=== PATIENT | female | born 1995 | race Caucasian/White ===

== ENCOUNTER 2020-02-27 12:30 | Outpatient (CLI) | payer MEDICAID ==
[~2020-02-27] VITALS: Ht 165.1 cm; Wt 122.4 kg
== END 2020-02-27 14:42 | disposition home or self-care (01) ==
LOC: LDOP 12:30
PROVIDERS: ATTEND Obstetrics & Gynecology
DX: O36.8130 Decreased fetal movements, third trimester, not applicable or unspecified (principal); Z3A.37 37 weeks gestation of pregnancy; N32.89 Other specified disorders of bladder
CPT/HCPCS: 59025; 76819; 84112; 99201; G0463

== ENCOUNTER 2020-03-03 15:54 | Inpatient (IN) | payer MEDICAID ==
[~2020-03-03] VITALS: Ht 165.1 cm; Wt 125.5 kg
[2020-03-03 16:10] VITALS: BP 147/83
[2020-03-03 16:47] LABS: CREATININE,URINE RANDOM 81.8 mg/dL
[2020-03-03 16:49] LABS: BASOPHILS # (AUTO) 0.06 x10^3/uL (0-0.1); BASOPHILS % (AUTO) 1 % (0-1); EOSINOPHILS # (AUTO) 0.02 x10^3/uL (0-0.4); EOSINOPHILS % (AUTO) 0 % (1-7); LYMPHOCYTES # (AUTO) 1.71 x10^3/uL (1-3.4); LYMPHOCYTES % (AUTO) 19 % (22-44); MD NO; MEAN CORPUSCULAR HEMOGLOBIN 33.3 pg (27.0-34.8); MEAN CORPUSCULAR HGB CONC 34.6 g/dL (32.4-35.8); MEAN CORPUSCULAR VOLUME 96.2 fL (80-100); MONOCYTES # (AUTO) 0.42 x10^3/uL (0.2-0.8); MONOCYTES % (AUTO) 5 % (2-9); NEUTROPHILS # (AUTO) 6.84 x10^3/uL (1.8-6.8); NEUTROPHILS % (AUTO) 76 % (42-75); PLATELET COUNT 235 x10^3/uL (130-400); RED BLOOD COUNT 3.78 x10^6/uL (3.82-5.3); RED CELL DISTRIBUTION WIDTH 13.6 % (9.6-15.2)
[2020-03-03 16:53] LABS: ALANINE AMINOTRANSFERASE 16 U/L (12-78); ALBUMIN 2.4 g/dL (3.4-5.0); ANION GAP 9 mmol/L (5-15); CALCIUM 8.6 mg/dL (8.5-10.1); CHLORIDE 108 mmol/L (98-107)
[2020-03-03 16:58] LABS: ALKALINE PHOSPHATASE 104 U/L (45-117); BILIRUBIN,TOTAL 0.2 mg/dL (0.2-1.0); CREATININE 0.54 mg/dL (0.55-1.02); TOTAL PROTEIN 6.1 g/dL (6.4-8.2)
[2020-03-03] MEDS ORDERED: PREN1TAB60 PO (17:00)
[2020-03-03 17:01] LABS: MICROSCOPIC INDICATED
[2020-03-03 17:48] VITALS: BP 155/96
[2020-03-03] MEDS ORDERED: MAGNESIUM SULF. PMX 20GM/500ML 500 ML IV ONE (18:24)
[2020-03-03] MEDS ORDERED: LIDOCAINE 1%, 20ML ONE (18:25)
[2020-03-03] MEDS ORDERED: MISOPROSTOL 200 MCG TABLET ONE (18:25)
[2020-03-03] MEDS ORDERED: OXYTOCIN 30U/ 0.9% NaCL 500ML 500 ML ONE (18:25)
[2020-03-03] MEDS ORDERED: OXYTOCIN 30U/ 0.9% NaCL 500ML 500 ML IV ONE (18:42)
[2020-03-03] MEDS ORDERED: D5%-LACTATED RINGERS 1,000 ML IV SCH (18:42)
[2020-03-03] MEDS ORDERED: LACTATED RINGERS 1,000 ML IV SCH (18:42)
[2020-03-03] MEDS ORDERED: MISOPROSTOL 25 MCG TABLET ONE (18:47)
[2020-03-03] MEDS: LACTATED RINGERS 1,000 ML IV PRN (18:53)
[2020-03-03] MEDS ORDERED: MISOPROSTOL 25 MCG TABLET VG PRN (19:00)
[2020-03-03] MEDS ORDERED: TERBUTALINE 1 MG/ML, 1ML SQ PRN (19:00)
[2020-03-03] MEDS ORDERED: ONDANSETRON 2MG/ML, 2ML IVPush PRN (19:00)
[2020-03-03] MEDS ORDERED: MAGNESIUM SULFATE PMX 4GM/100M 100 ML IVPB ONE (19:00)
[2020-03-03] MEDS ORDERED: ALUMINUM/MAG/SIMETHICONE 30 ML UDC PO PRN (19:00)
[2020-03-03] MEDS ORDERED: TERBUTALINE 1 MG/ML, 1ML IVPush PRN (19:00)
[2020-03-03] MEDS ORDERED: CALCIUM CARBONATE 500 MG TAB.CHEW PO PRN (19:00)
[2020-03-03] MEDS ORDERED: FENTANYL PF 100 MCG/2ML IV PRN (19:00)
[2020-03-03] MEDS: MAGNESIUM SULF. PMX 20GM/500ML 500 ML IV SCH (19:17)
[2020-03-03] MEDS ORDERED: LABETALOL 5MG/ML, 20ML ONE (19:21)
[2020-03-03] MEDS ORDERED: NEWBORN KIT ONE (19:21)
[2020-03-03] MEDS ORDERED: LABETALOL 5MG/ML, 20ML IVPush PRN ×3 (19:30)
[2020-03-03] MEDS ORDERED: hydrALAzine 20 MG/ML, 1ML IVPush ONE (19:30)
[2020-03-03] MEDS ORDERED: ACETAMINOPHEN 325 MG TABLET ONE (21:03)
[2020-03-04] MEDS ORDERED: MISOPROSTOL 25 MCG TABLET ONE ×2 (02:12→08:24)
[2020-03-04] MEDS ORDERED: MAGNESIUM SULF. PMX 20GM/500ML 500 ML IV ONE ×3 (02:44→23:36)
[2020-03-04] MEDS: MAGNESIUM SULF. PMX 20GM/500ML 500 ML IV SCH ×3 (02:49→23:39)
[2020-03-04] MEDS: LACTATED RINGERS 1,000 ML IV PRN (04:00)
[2020-03-04] MEDS ORDERED: ACETAMINOPHEN 325 MG TABLET ONE (05:19)
[2020-03-04] MEDS: ACETAMINOPHEN 325 MG TABLET PO PRN (05:21)
[2020-03-04] MEDS ORDERED: OXYTOCIN 30U/ 0.9% NaCL 500ML 500 ML IV PRN (06:47)
[2020-03-04] MEDS ORDERED: FENTANYL PF 100 MCG/2ML ONE ×2 (10:54→11:39)
[2020-03-04] MEDS: FENTANYL PF 100 MCG/2ML IVPush PRN ×2 (10:58→11:50)
[2020-03-04] MEDS ORDERED: ONDANSETRON 2MG/ML, 2ML ONE (11:40)
[2020-03-04] MEDS ORDERED: FENTANYL/BUPIV./NS/PF 250 ML EPIDCONT SCH ×2 (13:32→14:15)
[2020-03-04] MEDS ORDERED: FENTANYL/BUPIV./NS/PF 250 ML EPIDCONT ONE (13:41)
[2020-03-04] MEDS ORDERED: LACTATED RINGERS 1,000 ML INTUTE SCH (14:00)
[2020-03-04] MEDS ORDERED: LACTATED RINGERS 1,000 ML INTUTE ONE (14:00)
[2020-03-04] MEDS ORDERED: FENTANYL PF 500 MCG, BUPIVACAINE/PF 0.5%, 30ML 62.5 ML in SODIUM CHLORIDE 0.9% 177.5 ML IV SCH (14:00)
[2020-03-04] MEDS ORDERED: BUPIVACAINE 0.25% ONE (14:14)
[2020-03-04] MEDS ORDERED: LACTATED RINGERS 1,000 ML IV SCH ×3 (14:15→20:40)
[2020-03-04] MEDS ORDERED: LACTATED RINGERS 1,000 ML IVBOLUS PRN (14:30)
[2020-03-04] MEDS ORDERED: EPHEDRINE 50 MG/ML, 1ML IVPush PRN ×2 (14:30→21:00)
[2020-03-04] MEDS ORDERED: NALOXONE 0.4 MG/ML, 1ML IVPush PRN (14:30)
[2020-03-04] MEDS ORDERED: DIPHENHYDRAMINE 50 MG/ML, 1ML IVPush PRN ×2 (14:30→21:00)
[2020-03-04] MEDS ORDERED: ONDANSETRON 2MG/ML, 2ML IVPush PRN (14:30)
[2020-03-04] MEDS ORDERED: LIDOCAINE/MPF 2%-EPI 1:200K, 20 ML ONE (18:08)
[2020-03-04] MEDS ORDERED: CEFAZOLIN 1,000 MG ONE ×4 (19:27→19:28)
[2020-03-04] MEDS ORDERED: OXYTOCIN 10 UNITS/ML, 1ML ONE ×4 (19:29)
[2020-03-04] MEDS ORDERED: KETOROLAC 30 MG/1 ML ONE (19:30)
[2020-03-04] MEDS ORDERED: METOCLOPRAMIDE 5 MG/ML, 2ML ONE (19:31)
[2020-03-04] MEDS ORDERED: SODIUM CITRATE/CITRIC ACID 30 ML UDC ONE (19:31)
[2020-03-04] MEDS ORDERED: SODIUM BICARBONATE 1 MEQ/ML, 50ML VIAL ONE (19:32)
[2020-03-04] MEDS ORDERED: SODIUM CITRATE/CITRIC ACID 30 ML UDC PO ONE (20:00)
[2020-03-04] MEDS ORDERED: LACTATED RINGERS 1,000 ML IVBOLUS ONE (20:00)
[2020-03-04] MEDS ORDERED: METOCLOPRAMIDE 5 MG/ML, 2ML IV ONE (20:00)
[2020-03-04] MEDS: OXYTOCIN 30U/ 0.9% NaCL 500ML 500 ML IV SCH (20:40)
[2020-03-04] MEDS ORDERED: MISOPROSTOL 200 MCG TABLET PR PRN (21:00)
[2020-03-04] MEDS ORDERED: hydrALAzine 20 MG/ML, 1ML IV PRN (21:00)
[2020-03-04] MEDS ORDERED: MORPHINE SULFATE 4 MG/ML, 1ML IVPush PRN (21:00)
[2020-03-04] MEDS ORDERED: EPHEDRINE 50 MG/ML, 1ML IM PRN (21:00)
[2020-03-04] MEDS ORDERED: ACETAMINOPHEN 325 MG TABLET PO PRN (21:00)
[2020-03-04] MEDS ORDERED: OXYcodone 5 MG/5 ML ORAL.SOL UDC PO PRN (21:00)
[2020-03-04] MEDS ORDERED: ONDANSETRON 2MG/ML, 2ML IV PRN ×2 (21:00)
[2020-03-04] MEDS ORDERED: LABETALOL 5MG/ML, 20ML IV PRN (21:00)
[2020-03-04] MEDS ORDERED: FENTANYL PF 100 MCG/2ML IV PRN (21:00)
[2020-03-04] MEDS ORDERED: morphine SULFATE 10 MG/ML, 1ML IV PRN (21:00)
[2020-03-04] MEDS ORDERED: MEPERIDINE/PF 50 MG/ML ONE (21:13)
[2020-03-04] MEDS ORDERED: MEPERIDINE/PF 25MG/0.5ML IVPush PRN (21:30)
[2020-03-04] MEDS ORDERED: morphine SULFATE 10 MG/ML, 1ML ONE (22:31)
[2020-03-04] MEDS: MORPHINE SULFATE 4 MG/ML, 1ML IVPush PRN (22:42)
[2020-03-04] MEDS ORDERED: OXYcodone IR 5MG TABLET ONE (23:24)
[2020-03-04] MEDS: OXYcodone IR 5MG TABLET PO PRN (23:58)
[2020-03-05] MEDS ORDERED: LABETALOL 5MG/ML, 20ML IVPush PRN ×6 (01:30→07:00)
[2020-03-05] MEDS ORDERED: LABETALOL 5MG/ML, 20ML ONE (01:59)
[2020-03-05] MEDS ORDERED: KETOROLAC 30 MG/1 ML ONE ×3 (03:30→17:10)
[2020-03-05] MEDS: KETOROLAC 30 MG/1 ML IV SCH ×5 (03:34→23:44)
[2020-03-05] MEDS ORDERED: LABETALOL 200 MG TABLET ONE ×2 (05:59→19:11)
[2020-03-05] MEDS: LABETALOL 200 MG TABLET PO SCH ×2 (06:01→19:13)
[2020-03-05 06:30] LABS: MEAN CORPUSCULAR HEMOGLOBIN 32.8 pg (27.0-34.8); MEAN CORPUSCULAR HGB CONC 33.7 g/dL (32.4-35.8); MEAN CORPUSCULAR VOLUME 97.3 fL (80-100); PLATELET COUNT 223 x10^3/uL (130-400); RED BLOOD COUNT 3.85 x10^6/uL (3.82-5.3); RED CELL DISTRIBUTION WIDTH 13.9 % (9.6-15.2)
[2020-03-05] MEDS: OXYTOCIN 30U/ 0.9% NaCL 500ML 500 ML IV SCH ×2 (06:40→16:40)
[2020-03-05 06:58] LABS: BASOPHILS # (AUTO) 0.05 x10^3/uL (0-0.1); BASOPHILS % (AUTO) 0 % (0-1); EOSINOPHILS % (AUTO) 0 % (1-7); LYMPHOCYTES # (AUTO) 1.33 x10^3/uL (1-3.4); LYMPHOCYTES % (AUTO) 7 % (22-44); MD SCAN; MONOCYTES # (AUTO) 0.53 x10^3/uL (0.2-0.8); MONOCYTES % (AUTO) 3 % (2-9); NEUTROPHILS # (AUTO) 16.51 x10^3/uL (1.8-6.8); NEUTROPHILS % (AUTO) 90 % (42-75)
[2020-03-05] MEDS ORDERED: hydrALAzine 20 MG/ML, 1ML IVPush ONE (07:00)
[2020-03-05 08:53] VITALS: BP 136/67
[2020-03-05] MEDS ORDERED: MAGNESIUM SULF. PMX 20GM/500ML 500 ML IV ONE (09:41)
[2020-03-05] MEDS: MAGNESIUM SULF. PMX 20GM/500ML 500 ML IV SCH (09:45)
[2020-03-05 10:23] VITALS: BP 136/77
[2020-03-05 11:00] VITALS: BP 138/83
[2020-03-05] MEDS ORDERED: OXYcodone IR 5MG TABLET ONE ×2 (12:46→17:10)
[2020-03-05] MEDS: OXYcodone IR 5MG TABLET PO PRN ×3 (12:51→22:05)
[2020-03-05] MEDS ORDERED: DOCUSATE 100 MG CAPSULE ONE (17:10)
[2020-03-05] MEDS ORDERED: PRENATAL VIT/IRON/FA 1 EACH TABLET ONE (17:10)
[2020-03-05] MEDS: PRENATAL VIT/IRON/FA 1 EACH TABLET PO SCH (17:14)
[2020-03-05] MEDS: DOCUSATE 100 MG CAPSULE PO PRN (17:14)
[2020-03-05] MEDS ORDERED: MORPHINE SULFATE 4 MG/ML, 1ML ONE (19:32)
[2020-03-05] MEDS: MORPHINE SULFATE 4 MG/ML, 1ML IVPush PRN (19:34)
[2020-03-05 22:05] VITALS: BP 149/98
[2020-03-06] VITALS (7 sets, daily range): BP systolic 134–156; BP diastolic 81–100
[2020-03-06] MEDS: OXYTOCIN 30U/ 0.9% NaCL 500ML 500 ML IV SCH ×3 (02:40→22:40)
[2020-03-06] MEDS: OXYcodone IR 5MG TABLET PO PRN ×3 (03:12→23:07)
[2020-03-06] MEDS: ACETAMINOPHEN 325 MG TABLET PO PRN (03:12)
[2020-03-06] MEDS: KETOROLAC 30 MG/1 ML IV SCH ×3 (05:09→17:04)
[2020-03-06] MEDS: DOCUSATE 100 MG CAPSULE PO PRN ×2 (07:56→23:07)
[2020-03-06] MEDS: PRENATAL VIT/IRON/FA 1 EACH TABLET PO SCH (07:56)
[2020-03-06] MEDS: LABETALOL 200 MG TABLET PO SCH ×2 (07:57→17:04)
[2020-03-06] MEDS: OXYcodone/APAP 5/325MG TABLET PO PRN ×2 (11:35→16:15)
[2020-03-06] MEDS: IBUPROFEN 600 MG TABLET PO PRN (23:55)
[2020-03-06] MEDS: SIMETHICONE 80 MG CHEW TAB PO PRN (23:55)
[2020-03-07] MEDS: OXYcodone IR 5MG TABLET PO PRN ×3 (02:59→16:18)
[2020-03-07 03:06] VITALS: BP 149/94
[2020-03-07 07:46] VITALS: BP 149/98
[2020-03-07] MEDS: PRENATAL VIT/IRON/FA 1 EACH TABLET PO SCH (07:50)
[2020-03-07] MEDS: IBUPROFEN 600 MG TABLET PO PRN ×3 (07:50→22:12)
[2020-03-07] MEDS: DOCUSATE 100 MG CAPSULE PO PRN ×2 (07:50→22:12)
[2020-03-07] MEDS: LABETALOL 200 MG TABLET PO SCH ×2 (07:50→17:32)
[2020-03-07] MEDS: SIMETHICONE 80 MG CHEW TAB PO PRN ×3 (07:51→22:12)
[2020-03-07 16:20] VITALS: BP 152/99
[2020-03-07 20:45] VITALS: BP 153/92
[2020-03-07 23:30] VITALS: BP 144/87
[2020-03-08] MEDS: OXYcodone IR 5MG TABLET PO PRN ×3 (01:45→17:56)
[2020-03-08] MEDS: IBUPROFEN 600 MG TABLET PO PRN ×3 (04:20→17:55)
[2020-03-08] MEDS: SIMETHICONE 80 MG CHEW TAB PO PRN ×3 (04:20→17:55)
[2020-03-08 04:23] VITALS: BP 149/87
[2020-03-08] MEDS: PRENATAL VIT/IRON/FA 1 EACH TABLET PO SCH (07:40)
[2020-03-08] MEDS: LABETALOL 200 MG TABLET PO SCH ×2 (07:40→17:55)
[2020-03-08] MEDS: DOCUSATE 100 MG CAPSULE PO PRN (07:41)
[2020-03-08 07:47] VITALS: BP 153/99
[2020-03-08] MEDS ORDERED: IBUP-1222 PO (09:00)
[2020-03-08] MEDS ORDERED: OXYC5TAB3 PO (09:02)
[2020-03-08] MEDS ORDERED: LABE200T6 PO (09:03)
== END 2020-03-08 19:15 | disposition home or self-care (01) | DRG 788 ==
LOC: LDOP 15:54 → LDIP 18:20 → 2NE 03-04 20:46 → 2NW 03-05 20:30
PROVIDERS: ADMIT Obstetrics & Gynecology; ATTEND Obstetrics & Gynecology
PROC: 10D00Z1 Extraction of Products of Conception, Low, Open Approach (ICD-10-PCS; principal; 2020-03-04)
DX: O62.0 Primary inadequate contractions (principal); O14.14 Severe pre-eclampsia complicating childbirth; O99.284 Endocrine, nutritional and metabolic diseases complicating childbirth; Z37.0 Single live birth; E03.9 Hypothyroidism, unspecified; Z3A.37 37 weeks gestation of pregnancy; Z87.891 Personal history of nicotine dependence
CPT/HCPCS: 36415; J3490; 80053; 81001; 82570; 82803; 83735; 84156; 84550; 85025; 86592; 86850; 86900; G0378; J0690; J1885; J2175; J2405; J3010; J2270; J2590; J2765; J3475; J7120